=== PATIENT | female | born 1975 | race Hispanic/Latino ===

== ENCOUNTER 2019-02-06 00:53 | Emergency (ER) | payer BC, OTHER ==
[2019-02-06] MEDS ORDERED: DEXAMETHASONE SOD PHOSPHATE 10MG/ML 1ML VIAL ONE (01:19)
[2019-02-06] MEDS ORDERED: DiphenhydrAMINE HCL 50 MG/ML VIAL ONE (01:44)
== END 2019-02-06 01:54 | disposition home or self-care (01) ==
LOC: EDH 00:53
DX: T78.49XA Other allergy, initial encounter (principal); L50.9 Urticaria, unspecified; X58.XXXA Exposure to other specified factors, initial encounter
CPT/HCPCS: 82948; 96372 ×2; 99284; J1100; J1200